=== PATIENT | female | born 1995 | race Caucasian/White ===

== ENCOUNTER 2016-12-16 07:09 | Emergency (ER) | payer OTHER ==
[~2016-12-16] VITALS: Ht 160 cm; Wt 81.5 kg
[2016-12-16 07:10] VITALS: BP 178/93; PULSE 95; RESP 18; TEMP 98.1; O2SAT 100
[2016-12-16] MEDS ORDERED: IBUP800T23 PO (07:45)
[2016-12-16] MEDS ORDERED: CYCL1TAB29 PO (07:45)
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
[2016-12-16] MEDS ORDERED: VENTAER INH (07:50)
[2016-12-16] MEDS ORDERED: SYMB80AE INH (07:50)
[2016-12-16] MEDS ORDERED: ORPHENADRINE INJ 60 MG/2 ML AMP IM ONE (08:00)
[2016-12-16] MEDS ORDERED: KETOROLAC TROMETHAMINE 60 MG/2 ML (IM) VIAL IM ONE (08:00)
== END 2016-12-16 08:51 | disposition home or self-care (01) ==
LOC: NEPB 07:09
DX: S16.1XXA Strain of muscle, fascia and tendon at neck level, initial encounter (principal); F17.210 Nicotine dependence, cigarettes, uncomplicated; J45.909 Unspecified asthma, uncomplicated; V43.52XA Car driver injured in collision with other type car in traffic accident, initial encounter; Y99.8 Other external cause status
CPT/HCPCS: 96372; 99283; J1885; J2360

== ENCOUNTER 2018-10-21 05:35 | Observation (INO) ==
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
[2018-10-21] MEDS: Mag Sulf 1 gm/100 ml Premix 100 ML IV.SIG SCH ×2 (05:55→07:13)
--- NOTE | 2018-10-21 06:15 | XR ---
EXAM DATE: 10/21/2018 5:54 AM EST AGE/SEX: 23 years / Female INDICATIONS: Shortness of breath, cough starting today CLINICAL DATA: This is the patient's initial encounter. Patient reports that signs and symptoms have been present for 1 day and indicates a pain score of 5/10. MEDICAL/SURGICAL HISTORY: Asthma. None. COMPARISON: . FINDINGS: A single AP view of the chest demonstrates the lungs to be symmetrically aerated without evidence of mass, infiltrate or effusion. The cardiomediastinal contours are unremarkable. Osseous structures a re intact. CONCLUSION: Negative examination. Electronically signed by: Frank Mejias MD 10/21/2018 6:13 AM EST
[2018-10-21 06:54] LABS: Baso # (Auto) 0.1 th/mm3 (0.0-0.2); Baso % (Auto) 0.3 % (0.0-2.0); Eos # (Auto) 0.1 th/mm3 (0.0-0.4); Eos % (Auto) 0.7 % (0.0-4.0); Hemoglobin 14.9 gm/dL (11.6-15.3); Lymph # (Auto) 2.4 th/mm3 (1.0-4.8); Lymph % (Auto) 12.9 % (9.0-44.0); Mean Corpuscular Volume 88.4 fL (80.0-100.0); Mono % (Auto) 5.6 % (0.0-8.0); Neut % (Auto) 80.5 % (16.0-70.0); Platelet Count 474 th/mm3 (150-450); Red Blood Count 4.97 mil/mm3 (4.00-5.30); Red Cell Distribution Width 13.3 % (11.6-17.2); White Blood Count 18.6 th/mm3 (4.0-11.0)
[2018-10-21 07:19] LABS: Carbon Dioxide 23.5 meq/L (21.0-32.0); Potassium 3.8 meq/L (3.5-5.1)
[2018-10-21] MEDS ORDERED: Sod Chloride 0.9% Inj 1,000 ML IV.SIG SCH ×2 (08:15→10:00)
--- NOTE | 2018-10-21 08:15 | P.HPFP ---
History of Present Illness Primary Care Physician: UNKNOWN <DiannedagoVidhya R - 10/21/18 20:28> UNKNOWN <Israel Villarreal B - 10/21/18 08:15> History of Present Illness: 23 yo F with PMH of Asthma presented to the ED via EMS due to SOB. Patient states that she was in her normal state of health until the day prior to admission when she became SOB around 3 pm. At that time she went home from work and used her pro-air inhaler as well as an albuterol nebulizer treatment. Her shortness of breath improved and then she returned to work and at 7 PM became short of breath again. That time she went home and did multiple nebulizer treatments but continued to feel that she "cannot get air in and felt some chest tightness." She was up all night short of breath and around 4 AM and called EMS. She states she had a total of 4 breathing treatments at home, 3 in the ambulance as well as steroids in the ambulance, and 2 more breathing treatments since being in the emergency room. She states her shortness of breath has improved but she continues to wheeze. And fever, chills, sick contacts. She does states that she has had a cough/itchy throat for 1 day that has been productive of white/mucus-like sputum. Denies any streaks of blood in the sputum. She states that she has had several weeks of substernal "constricted feeling "as well as occasional sharp pain with certain movements. Denies any exertional chest pain. Patient states her last hospitalization due to asthma was at 7 years of age and that she has never been intubated. She does state that one month ago she ran out of her inhalers and thought she may have had a small asthma exacerbation at that time but did not go to the hospital. Of note, patient states that she does have a history of irregular periods and has not had one in several months. She is sexually active with her fianc and is not on any form of control. PMH: Asthma, scoliosis, seasonal allergies Past surgical Hx:none Fam Hx: DM in parents, HTN mom Social Hx: Lives with jena and his brother, occasional tobacco use but none recently, Etoh several drinks per week with no history of withdrawal, no drugs. Has a desk job. No medical allergies <Israel Villarreal B - 10/21/18 09:50> - Diagnosis (1) Wheezing (2) Hypoxia (3) SIRS (systemic inflammatory response syndrome) (4) Chest pain (5) Abnormal menstrual periods (6) Nutrition, metabolism, and development symptoms <Vidhya Ngo [facility] 10/21/18 20:28> (1) Wheezing (2) Hypoxia (3) SIRS (systemic inflammatory response syndrome) (4) Chest pain (5) Abnormal menstrual periods (6) Nutrition, metabolism, and development symptoms <Israel Villarreal [facility] 10/21/18 11:31> Review of Systems Constitutional: Denies chills, Denies fever(s), Denies headache(s) <[facility] 10/21/18 08:15> Eyes: Denies blurry vision, Denies change in vision <[facility] 08:15> Ears, Nose, Mouth, and Throat: Reports sore throat [facility]> Cardiovascular: Reports shortness of breath with activity, Denies chest pain with activity <[facility] 10/21/18 08:15> Respiratory: Reports cough, Denies coughing up blood <[facility] 10/21 08:15> Gastrointestinal: Denies abdominal pain, Denies nausea, Denies vomiting < [facility] 08:15> Genitourinary: Reports abnormal periods, Denies blood in urine, Denies urinary urgency <[facility] 10/21/18 09:50> Musculoskeletal: Denies body aches, Denies radiating pain into limb <[facility] 10/21/18 09:50> Neurologic: Denies headache(s), Denies localized weakness <[facility] 10/21/18 09:50> PMFSH - History History Provided By: Patient <Israel Villarreal [facility] 10/21/18 08:15> - Medical History Medical History: Medical History (Last Reviewed 10/21/18 @ 08:12 by Israel Villarreal MD, R2) Asthma <JeniVidhay R 10/21/18 12:15> Medical History (Last Reviewed 10/21/18 @ 08:12 by Israel Villarreal MD, R2) Asthma <[facility] 10/21/18 08:15> - Tobacco History Second Hand Smoke Exposure: No <Israel Villarreal - 10/21/18 08:15> Smoking Status: Never smoker <Israel Villarreal - 10/21/18 08:15> Tobacco Type: Cigarettes <Israel Villarreal - 10/21/18 08:15> - Alcohol History How Often Do You Have a Drink Containing Alcohol: Monthly or less <Israel Villarreal 10/21/18 08:15> - Substance Use History Substance History: No History of Abuse <Israel Villarreal 10/21/18 08:15> - Travel History Recent Travel in the [facility] Within the Last 8 Weeks: No <Israel Villarreal 10/21 08:15> Recent Travel Out of the Country Within the Last 8 Weeks: No <Israel Villarreal 10/21/18 08:15> - Immunization History Tetanus Immunization: <5 Years <Israel Villarreal 10/21/18 08:15> Medications and Allergies Allergies Allergy/AdvReac Type Severity Reaction Status Date / Time cat dander Allergy Intermediate Wheezing Verified 10/21/18 05:43 <Vidhya Ngo - 10/21/18 20:28> Home Medications Medication Instructions Recorded Confirmed Type albuterol sulfate 2.5 mg INHALATION Q4H PRN 08/15/18 10/21/18 History <Vidhya Ngo - 10/21/18 20:28> Active Medications: Active Medications Acetaminophen (Tylenol) 650 mg PO Q4H PRN PRN Reason: Temp > 100.4 Al Hydroxide/Mg Hydroxide (Milk Of Bonifacio Liq) 30 ml PO Q12H PRN PRN Reason: Mild Constipation Albuterol (Albuterol Neb (Prn)) 2.5 mg NEB Q2HR NEB PRN PRN Reason: SHORTNESS OF BREATH Albuterol (Duoneb Neb (Ra)) 1 ampul NEB Q4HR NEB RA Last Admin: 10/21/18 11:53 Dose: 1 ampul Benzonatate (Tessalon Perles) 100 mg PO Q8H PRN PRN Reason: COUGH Naproxen (Anaprox Ds) 275 mg PO BID RA Last Admin: 10/21/18 09:35 Dose: Not Given Ondansetron HCl (Zofran Inj) 4 mg IV.PUSH Q6H PRN PRN Reason: NAUSEA OR VOMITING Prednisone (Deltasone) 40 mg PO DAILY [facility] Last Admin: 10/21/18 09:35 Dose: 40 mg Senna/Docusate Sodium (Martha-Colace) 1 tab PO BID [facility] Last Admin: 10/21/18 09:33 Dose: Not Given Sennosides (Senokot) 17.2 mg PO Q12H PRN PRN Reason: Moderate Constipation Sodium Chloride (Ns Flush) 2 ml IV.FLUSH BID [facility] Last Admin: 10/21/18 09:36 Dose: 2 ml Sodium Chloride (Ns Flush) 2 ml IV.FLUSH PRN PRN PRN Reason: FLUSH AFTER USING IV ACCESS <Vidhya Ngo R - 10/21/18 12:15> Exam Vital signs: Vital Signs 10/21/18 05:43 10/21/18 06:08 10/21/18 06:31 Temperature 98.0 F Pulse Rate 136 H 128 H 130 H Respiratory Rate 30 H 24 20 Blood Pressure 167/81 H 164/77 H Pulse Oximetry 94 L 97 10/21/18 06:47 10/21/18 08:38 10/21/18 08:58 Temperature Pulse Rate 125 H 110 H Respiratory Rate 20 22 Blood Pressure 133/72 Pulse Oximetry 96 93 L 96 10/21/18 10:33 10/21/18 11:28 10/21/18 11:54 Temperature Pulse Rate 115 H 114 H 114 H Respiratory Rate 20 40 H 22 Blood Pressure 125/69 137/68 Pulse Oximetry 96 Intake & Output 10/20/18 10/21/18 10/21/18 18:59 06:59 18:59 Intake Total 3200 / 3200 Balance 3200 / 3200 Weight 90.718 kg Intake: IV 3200 / 3200 Magnesium Sulfate 1 gm/D5W 100 200 / 200 ml Premix 100 ML @ 100 mls/hr IV.SIG Q1H [facility] Rx#:[id number] NS Inj 1,000 ML @ Wide Open IV. 3000 / 3000 SIG BOLUS ONE Rx#:[id number] <Vidhya Ngo R - 10/21/18 20:28> Vital Signs 10/21/18 05:43 10/21/18 06:08 10/21/18 06:31 Temperature 98.0 F Pulse Rate 136 H 128 H 130 H Respiratory Rate 30 H 24 20 Blood Pressure 167/81 H 164/77 H Pulse Oximetry 94 L 97 10/21/18 06:47 Temperature Pulse Rate 125 H Respiratory Rate 20 Blood Pressure Pulse Oximetry 96 Intake & Output 10/20/18 10/21/18 10/21/18 18:59 06:59 18:59 Intake Total 100 / 100 Balance 100 / 100 Weight 90.718 kg Intake: IV 100 / 100 Magnesium Sulfate 1 gm/D5W 100 100 / 100 ml Premix 100 ML @ 100 mls/hr IV.SIG Q1H [facility] Rx#:[id number] <Israel Villarreal Sindhu - 10/21/18 08:15> Narrative: GENERAL: Well developed, well nourished female sitting upright in bed in NAD. Breathing comfortably, able to speak in full sentences and answering questions appropriately SKIN: Warm and dry. HEAD: Atraumatic. Normocephalic. EYES: Pupils equal and round. No scleral icterus. No injection or drainage. ENT: No nasal bleeding or discharge. Mucous membranes pink and moist. Oropharynx is benign with no erythema or lesions NECK: Trachea midline. No JVD. No lymphadenopathy appreciated CARDIOVASCULAR: Regular rate and rhythm. Tachycardic to the 110's. Tender to palpation along the lower right sternal border RESPIRATORY: No accessory muscle use. Diffuse inspiratory and expiratory wheezes bilaterally. No crackles appreciated GASTROINTESTINAL: Abdomen soft, non-tender, nondistended. Hepatic and splenic margins not palpable. MUSCULOSKELETAL: Extremities without clubbing, cyanosis, or edema. No obvious deformities. NEUROLOGICAL: Awake and alert. No obvious cranial nerve deficits. Motor grossly within normal limits. Five out of 5 muscle strength in the arms and legs. Normal speech. PSYCHIATRIC: Appropriate mood and affect; insight and judgment normal. <Israel Villarreal B - 10/21/18 09:50> Results - Labs Result diagrams: 10/21/18 06:40 10/21/18 06:40 <Vidhya Ngo - 10/21/18 20:28> Abnormal lab results 10/21/18 10/21/18 10/21/18 Range/Units 06:40 06:40 06:40 WBC 18.6 H (4.0-11.0) th/mm3 Plt Count 474 H (150-450) th/mm3 Neut % (Auto) 80.5 H (16.0-70.0) % Neut # (Auto) 15.0 H (1.8-7.7) th/mm3 [place] # (Auto) 1.0 H (0.0-0.9) th/mm3 D-Dimer Quant (PE/DVT) (0.00-0.50) mg/L FEU BUN 6 L (7-18) mg/dL Random Glucose 121 H (74-106) mg/dL Lactic Acid (0.4-2.0) mmol/L C-Reactive Protein 2.00 H (0.00-0.30) mg/dL 10/21/18 10/21/18 Range/Units 08:35 09:00 WBC (4.0-11.0) th/mm3 Plt Count (150-450) th/mm3 Neut % (Auto) (16.0-70.0) % Neut # (Auto) (1.8-7.7) th/mm3 [place] # (Auto) (0.0-0.9) th/mm3 D-Dimer Quant (PE/DVT) 0.53 H (0.00-0.50) mg/L FEU BUN (7-18) mg/dL Random Glucose (74-106) mg/dL Lactic Acid 5.6 H* (0.4-2.0) mmol/L C-Reactive Protein (0.00-0.30) mg/dL Short CBC 10/21/18 Range/Units 06:40 WBC 18.6 H (4.0-11.0) th/mm3 Hgb 14.9 (11.6-15.3) gm/dL Hct 44.0 (35.0-46.0) % Plt Count 474 H (150-450) th/mm3 [facility] 10/21/18 06:40 Sodium 138 Potassium 3.8 Chloride 106 Carbon Dioxide 23.5 BUN 6 L Creatinine 0.79 Calcium 9.0 <Vidhya Ngo - 10/21/18 20:28> Abnormal lab results 10/21/18 10/21/18 Range/Units 06:40 06:40 WBC 18.6 H (4.0-11.0) th/mm3 Plt Count 474 H (150-450) th/mm3 Neut % (Auto) 80.5 H (16.0-70.0) % Neut # (Auto) 15.0 H (1.8-7.7) th/mm3 [place] # (Auto) 1.0 H (0.0-0.9) th/mm3 BUN 6 L (7-18) mg/dL Random Glucose 121 H (74-106) mg/dL Short CBC 10/21/18 Range/Units 06:40 WBC 18.6 H (4.0-11.0) th/mm3 Hgb 14.9 (11.6-15.3) gm/dL Hct 44.0 (35.0-46.0) % Plt Count 474 H (150-450) th/mm3 BMP 10/21/18 06:40 Sodium 138 Potassium 3.8 Chloride 106 Carbon Dioxide 23.5 BUN 6 L Creatinine 0.79 Calcium 9.0 <Israel Villarreal - 10/21/18 08:15> - Imaging Impressions Chest X-Ray 10/21/18 05:43 CONCLUSION: Negative examination. Chest CTA 10/21/18 09:34 CONCLUSION: 1. No pulmonary embolus identified. <Vidhya Ngo R - 10/21/18 20:28> Impressions Chest X-Ray 10/21/18 05:43 CONCLUSION: Negative examination. <Israel Villarrela - 10/21/18 08:15> Caprini VTE Risk Assessment Caprini VTE Risk Assessment: No/Low Risk (score <= 1) <Israel Villarreal - 09:50> Caprini Risk Assessment Model: Point Value = 1 Point Value = 2 Point Value = 3 Point Value = 5 Age 41-60 Minor surgery BMI > 25 kg/m2 Swollen legs Varicose veins or History of unexplained or recurrent spontaneous Oral contraceptives or hormone replacement Sepsis (< 1 month) Serious lung disease, including pneumonia (< 1 month) Abnormal pulmonary function Acute myocardial infarction Congestive heart failure (< 1 month) History of inflammatory bowel disease Medical patient at bed rest Age 61-74 Arthroscopic surgery Major open surgery (> 45 min) Laparoscopic surgery (> 45 min) Malignancy Confined to bed (> 72 hours) Immobilizing plaster cast Central venous access Age >= 75 History of VTE Family history of VTE Factor V Leiden Prothrombin [id number] Lupus anticoagulant Anticardiolipin antibodies Elevated serum homocysteine Heparin-induced thrombocytopenia Other congenital or acquired thrombophilia Stroke (< 1 month) Elective arthroplasty Hip, pelvis, or leg fracture Acute spinal cord injury (< 1 month) <Vidhya Ngo R - 10/21/18 20:28> Point Value = 1 Point Value = 2 Point Value = 3 Point Value = 5 Age 41-60 Minor surgery BMI > 25 kg/m2 Swollen legs Varicose veins or History of unexplained or recurrent spontaneous Oral contraceptives or hormone replacement Sepsis (< 1 month) Serious lung disease, including pneumonia (< 1 month) Abnormal pulmonary function Acute myocardial infarction Congestive heart failure (< 1 month) History of inflammatory bowel disease Medical patient at bed rest Age 61-74 Arthroscopic surgery Major open surgery (> 45 min) Laparoscopic surgery (> 45 min) Malignancy Confined to bed (> 72 hours) Immobilizing plaster cast Central venous access Age >= 75 History of VTE Family history of VTE Factor V Leiden Prothrombin [id number] Lupus anticoagulant Anticardiolipin antibodies Elevated serum homocysteine Heparin-induced thrombocytopenia Other congenital or acquired thrombophilia Stroke (< 1 month) Elective arthroplasty Hip, pelvis, or leg fracture Acute spinal cord injury (< 1 month) <Israel Villarreal B - 10/21/18 08:15> Prophylaxis Regimen: Total Risk Factor Score Risk Level Prophylaxis Regimen 0-1 Low Early ambulation 2 Moderate Order ONE of the following: *Sequential Compression Device (SCD) *Heparin 5000 units SQ BID 3-4 Higher Order ONE of the following medications: *Heparin 5000 units SQ TID *Enoxaparin/Lovenox 40 mg SQ daily (WT < 150 kg, CrCl > 30 mL/min) *Enoxaparin/Lovenox 30 mg SQ daily (WT < 150 kg, CrCl > 10-29 mL/min) *Enoxaparin/Lovenox 30 mg SQ BID (WT < 150 kg, CrCl > 30 mL/min) AND/OR *Sequential Compression Device (SCD) 5 or more Highest Order ONE of the following medications: *Heparin 5000 units SQ TID (Preferred with Epidurals) *Enoxaparin/Lovenox 40 mg SQ daily (WT < 150 kg, CrCl > 30 mL/min) *Enoxaparin/Lovenox 30 mg SQ daily (WT < 150 kg, CrCl > 10-29 mL/min) *Enoxaparin/Lovenox 30 mg SQ BID (WT < 150 kg, CrCl > 30 mL/min) AND *Sequential Compression Device (SCD) <Vidhya Ngo R - 10/21/18 20:28> Total Risk Factor Score Risk Level Prophylaxis Regimen 0-1 Low Early ambulation 2 Moderate Order ONE of the following: *Sequential Compression Device (SCD) *Heparin 5000 units SQ BID 3-4 Higher Order ONE of the following medications: *Heparin 5000 units SQ TID *Enoxaparin/Lovenox 40 mg SQ daily (WT < 150 kg, CrCl > 30 mL/min) *Enoxaparin/Lovenox 30 mg SQ daily (WT < 150 kg, CrCl > 10-29 mL/min) *Enoxaparin/Lovenox 30 mg SQ BID (WT < 150 kg, CrCl > 30 mL/min) AND/OR *Sequential Compression Device (SCD) 5 or more Highest Order ONE of the following medications: *Heparin 5000 units SQ TID (Preferred with Epidurals) *Enoxaparin/Lovenox 40 mg SQ daily (WT < 150 kg, CrCl > 30 mL/min) *Enoxaparin/Lovenox 30 mg SQ daily (WT < 150 kg, CrCl > 10-29 mL/min) *Enoxaparin/Lovenox 30 mg SQ BID (WT < 150 kg, CrCl > 30 mL/min) AND *Sequential Compression Device (SCD) <Israel Villarreal B - 10/21/18 08:15> Assessment and Plan - Assessment (1) Wheezing Code(s): R06.2 - Wheezing Status: Acute (2) Hypoxia Code(s): R09.02 - Hypoxemia Status: Acute (3) SIRS (systemic inflammatory response syndrome) Code(s): R65.10 - Systemic inflammatory response syndrome (SIRS) of non- infectious origin without acute organ dysfunction Status: Acute (4) Chest pain Code(s): R07.9 - Chest pain, unspecified Status: Acute (5) Abnormal menstrual periods Code(s): N92.6 - Irregular menstruation, unspecified Status: Acute (6) Nutrition, metabolism, and development symptoms Code(s): R63.8 - Other symptoms and signs concerning food and fluid intake Status: Acute <Vidhya Ngo R - 10/21/18 20:28> (1) Wheezing Code(s): R06.2 - Wheezing Status: Acute Plan: 1 day history of wheezing/shortness of breath with a known history of asthma Takes Symbicort at home as well as occasional pro-air inhaler/albuterol nebulizer treatments Received a total of 7-10 breathing treatments over the course of the last 24 hours Received Solu-Medrol 125 mg in the ambulance Continues to have respiratory and expiratory wheezing on exam Received 2 g magnesium IV in the ED Will continue scheduled duo nebs every 4 hours, albuterol nebs every 2 hours as needed Prednisone 40 mg p.o. daily (2) Hypoxia Code(s): R09.02 - Hypoxemia Status: Acute Plan: Patient was hypoxic with oxygen as low as 89% on room air Likely secondary to her asthma exacerbation, however PE is on the differential Wells score of 1.5 D-dimer ordered on admission O2 nasal cannula as needed (3) SIRS (systemic inflammatory response syndrome) Code(s): R65.10 - Systemic inflammatory response syndrome (SIRS) of non- infectious origin without acute organ dysfunction Status: Acute Plan: Patient meets sirs criteria on admission with a WBC of 18.6, tachycardia up to 130 Chest x-ray on admission was negative, UA pending No known source at this time Received 1 L normal saline bolus in the ED Patient had received 125 mg Solu-Medrol IV prior to the CBC being drawn, is also had numerous albuterol breathing treatments could contribute to tachycardia Ordering lactic acid, CRP Will continue to monitor and consider drawing blood cultures/initiating antibiotic treatment pending further workup (4) Chest pain Code(s): R07.9 - Chest pain, unspecified Status: Acute Plan: Patient with several week history of substernal chest pain that is occasionally sharp with certain movements No exertional chest pain or pain at rest Reproducible on physical exam, suspect costochondritis EKG on admission showed sinus tachycardia Naproxen 275 mg p.o. twice daily (5) Abnormal menstrual periods Code(s): N92.6 - Irregular menstruation, unspecified Status: Acute Plan: Patient with a known history of abnormal menstrual periods States she has not had a period in 3 months test ordered on admission, sexually active with her fianc and currently on any form of contraception Will need to follow-up with PCP as an outpatient (6) Nutrition, metabolism, and development symptoms Code(s): R63.8 - Other symptoms and signs concerning food and fluid intake Status: Acute Plan: Regular diet No IV fluids at this time, received 1 L bolus of normal saline in the ED SCDs for DVT prophylaxis Zofran as needed for nausea <Israel Villarreal Sindhu - 10/21/18 11:31> - Assessment and Plan 23-year-old female with a known history of asthma presented to the ED via EMS with a 1 day history of shortness of breath. Significant wheezing on exam and hypoxia with O2 sat of 89 appreciated on admission. Chest x-ray negative on admission, EKG with sinus tachycardia. Patient meets sirs criteria on admission due to leukocytosis and tachycardia. Admitting to observation for further workup and management of her wheezing. Disposition: Likely discharge home tomorrow <Israel Villarreal - 10/21/18 09:50> - Attending Attestation Patient discussed with the resident team and agree with the assessment and plan as written. I personally saw the patient and did my exam at 12:00pm. Patient reports feeling much better since she first came to the ED -- she states her chest feels less tight, she is moving air easier, less SOB. She reports somewhat of some SOB after walking to and from the bathroom but no longer has any SOB at rest. Vital Signs Temp Pulse Resp BP Pulse Ox 10/21/18 11:54 114 H 22 10/21/18 11:28 114 H 40 H 137/68 10/21/18 10:33 115 H 20 125/69 96 10/21/18 08:58 96 10/21/18 08:38 110 H 22 133/72 93 L 10/21/18 06:47 125 H 20 96 10/21/18 06:31 130 H 20 164/77 H 97 10/21/18 06:08 128 H 24 10/21/18 05:43 98.0 F 136 H 30 H 167/81 H 94 L Intake and Output 10/20/18 10/21/18 10/21/18 22:59 06:59 14:59 Intake Total 3200 / 3200 Balance 3200 / 3200 Intake: IV 3200 / 3200 Magnesium Sulfate 1 gm/D5W 100 200 / 200 ml Premix 100 ML @ 100 mls/hr IV.SIG Q1H [facility] Rx#:[id number] NS Inj 1,000 ML @ Wide Open IV. 3000 / 3000 SIG BOLUS ONE Rx#:[id number] Other: Weight 90.718 kg GENERAL: GENERAL: SKIN: Warm and dry. HEAD: Atraumatic. Normocephalic. EYES: Pupils equal and round. No scleral icterus. No injection or drainage. ENT: No nasal bleeding or discharge. Mucous membranes pink and moist. NECK: Trachea midline. No JVD. CARDIOVASCULAR: Regular rate and rhythm. RESPIRATORY: No accessory muscle use. bilateral inspiratory and expiratory wheezing, no crackles or rales, Moving air well GASTROINTESTINAL: Abdomen soft, non-tender, nondistended. Hepatic and splenic margins not palpable. MUSCULOSKELETAL: Extremities without clubbing, cyanosis, or edema. No obvious deformities. NEUROLOGICAL: Awake and alert. No obvious cranial nerve deficits. Motor grossly within normal limits. Five out of 5 muscle strength in the arms and legs. Normal speech. PSYCHIATRIC: Appropriate mood and affect; insight and judgment normal. AP: 1. Asthma exacerbation -- patient already improving. Does meet SIRS criteria on admission but the elevated HR likely due to several albuterol treatments. Elevated WBC might be possible with steroids -- but will monitor for sign of bacterial infection. Clinically this patient is not septic, she is already improved and shows no sign of clinical infection. Continue current plan <Vidhya Ngo R - 10/21/18 12:15>
[2018-10-21] MEDS ORDERED: Acetaminophen 325 MG Tablet PO PRN (08:34)
[2018-10-21] MEDS: Senna/Docusate Sodium 8.6/50 MG Tablet PO SCH ×2 (09:33→20:25)
[2018-10-21] MEDS: predniSONE 20 MG Tablet PO SCH (09:35)
[2018-10-21] MEDS ORDERED: Sod Chloride 0.9% Inj 1,000 ML IV.SIG ONE (10:00)
[2018-10-21] MEDS ORDERED: Benzonatate 100 MG Capsule PO PRN (10:20)
--- NOTE | 2018-10-21 10:28 | CT ---
EXAM DATE: 10/21/2018 10:21 AM EST AGE/SEX: 23 years / Female INDICATIONS: Short of breath with chest pain for 10 hours. CLINICAL DATA: This is the patient's initial encounter. Patient reports that signs and symptoms have been present for 1 day and indicates a pain score of 9/10. MEDICAL/SURGICAL HISTORY: Asthma. None. RADIATION DOSE: 16.85 CTDI (mGy) COMPARISON: No prior exams available for comparison. TECHNIQUE: Volumetric scanning was performed using a multi-row detector CT scanner during bolus infu jackelin of 75 ml Omnipaque 350 (iohexol) nonionic water-soluble contrast as a single exam dose. The dione a was post processed with a variety of visualization algorithms including full volume maximum intensi ty projection and sliding thin slab reformation. Using automated exposure control and adjustment of the mA and/or kV according to patient size, radiation dose was kept as low as reasonably achievable t o obtain optimal diagnostic quality images. DICOM format image data is available electronically for review and comparison. FINDINGS: The examination is of adequate diagnostic quality. No pulmonary embolus is identified. The thoracic a chelsea is intact. The heart is normal in size. There is no significant hilar or mediastinal adenopathy. No pericardial effusion is evident. The visualized pulmonary parenchyma is clear. The osseous structures are intact. CONCLUSION: 1. No pulmonary embolus identified. Electronically signed by: Marbin Collier MD 10/21/2018 10:27 AM EST
[2018-10-21 12:13] LABS: Albumin 3.5 g/dL (3.4-5.0)
[2018-10-21 12:15] LABS: Total Protein 7.4 g/dL (6.4-8.2)
[2018-10-22 06:02] LABS: Baso % (Auto) 0.2 % (0.0-2.0); Eos # (Auto) 0.1 th/mm3 (0.0-0.4); Eos % (Auto) 0.4 % (0.0-4.0); Hematocrit 38.4 % (35.0-46.0); Lymph # (Auto) 3.5 th/mm3 (1.0-4.8); Lymph % (Auto) 16.7 % (9.0-44.0); Mean Corpuscular HGB Conc 33.8 % (32.0-36.0); Mean Corpuscular Hemoglobin 30.5 pg (27.0-34.0); Mean Corpuscular Volume 90.4 fL (80.0-100.0); Mean Platelet Volume 7.5 fL (7.0-11.0); Mono # (Auto) 1.8 th/mm3 (0.0-0.9); Mono % (Auto) 8.4 % (0.0-8.0); Neut # (Auto) 15.7 th/mm3 (1.8-7.7); Neut % (Auto) 74.3 % (16.0-70.0); Platelet Count 422 th/mm3 (150-450); Red Blood Count 4.25 mil/mm3 (4.00-5.30); Red Cell Distribution Width 13.5 % (11.6-17.2); White Blood Count 21.1 th/mm3 (4.0-11.0)
[2018-10-22 06:25] LABS: Anion Gap 5 meq/L (5-15); Blood Urea Nitrogen 7 mg/dL (7-18); Calcium 8.5 mg/dL (8.5-10.1); Carbon Dioxide 25.7 meq/L (21.0-32.0); Chloride 109 meq/L (98-107); Glomerular Filtration Rate Greater Than 89 mL/min (>89); Glucose,Random 121 mg/dL (74-106); Sodium 140 meq/L (136-145)
[2018-10-22] MEDS: predniSONE 20 MG Tablet PO SCH (08:21)
[2018-10-22] MEDS: Senna/Docusate Sodium 8.6/50 MG Tablet PO SCH (08:27)
--- NOTE | 2018-10-22 10:28 | P.PNFP ---
Subjective Interval history: No acute events overnight. Patient's vital signs remained stable and her tachycardia improved to a heart rate in the 90s. Patient was on room air overnight and tolerated walking around her room with no significant shortness of breath. She continues to have some mild chest pain when coughing but states that has improved. Patient feels comfortable going home today. <Israel Villarreal B - 10/22/18 14:00> Results - Labs Result diagrams: 10/22/18 05:37 10/22/18 05:37 <Vidhya Ngo R - 10/23/18 09:12> Abnormal lab results 10/21/18 10/21/18 10/21/18 Range/Units 11:27 12:08 15:18 WBC (4.0-11.0) th/mm3 Neut % (Auto) (16.0-70.0) % [place] % (Auto) (0.0-8.0) % Neut # (Auto) (1.8-7.7) th/mm3 [place] # (Auto) (0.0-0.9) th/mm3 Chloride (98-107) meq/L Random Glucose (74-106) mg/dL Lactic Acid 4.6 H* 4.6 H* (0.4-2.0) mmol/L AST 12 L (15-37) U/L 10/22/18 10/22/18 Range/Units 05:37 05:37 WBC 21.1 H (4.0-11.0) th/mm3 Neut % (Auto) 74.3 H (16.0-70.0) % [place] % (Auto) 8.4 H (0.0-8.0) % Neut # (Auto) 15.7 H (1.8-7.7) th/mm3 [place] # (Auto) 1.8 H (0.0-0.9) th/mm3 Chloride 109 H (98-107) meq/L Random Glucose 121 H (74-106) mg/dL Lactic Acid (0.4-2.0) mmol/L AST (15-37) U/L Short CBC 10/22/18 Range/Units 05:37 WBC 21.1 H (4.0-11.0) th/mm3 Hgb 13.0 (11.6-15.3) gm/dL Hct 38.4 (35.0-46.0) % Plt Count 422 (150-450) th/mm3 BMP 10/22/18 05:37 Sodium 140 Potassium 4.0 Chloride 109 H Carbon Dioxide 25.7 BUN 7 Creatinine 0.70 Calcium 8.5 Liver Function 10/21/18 Range/Units 11:27 Total Bilirubin 0.5 (0.2-1.0) mg/dL Direct Bilirubin 0.1 (0.0-0.2) mg/dL AST 12 L (15-37) U/L ALT 20 (10-53) U/L Alkaline Phosphatase 68 (45-117) U/L Albumin 3.5 (3.4-5.0) g/dL <Israel Villarreal - 10/22/18 10:28> - Imaging Impressions Chest CTA 10/21/18 09:34 CONCLUSION: 1. No pulmonary embolus identified. <Israel Villarreal - 10/22/18 10:28> Physical Exam Vital signs: Vital Signs 10/22/18 12:00 10/22/18 12:40 Temperature 97.9 F Pulse Rate 99 H 99 H Respiratory Rate 18 16 Blood Pressure 128/84 Pulse Oximetry 98 <Vidhya Ngo - 10/23/18 09:12> Vital Signs 10/21/18 10:33 10/21/18 11:28 10/21/18 11:54 Temperature Pulse Rate 115 H 114 H 114 H Respiratory Rate 20 40 H 22 Blood Pressure 125/69 137/68 Pulse Oximetry 96 10/21/18 15:31 10/21/18 16:44 10/21/18 20:00 Temperature 98.2 F Pulse Rate 114 H 114 H 111 H Respiratory Rate 20 24 20 Blood Pressure 132/70 145/75 H Pulse Oximetry 96 95 10/21/18 20:17 10/21/18 23:46 10/22/18 00:00 Temperature 98.4 F Pulse Rate 111 H 101 H 101 H Respiratory Rate 16 16 20 Blood Pressure 131/66 Pulse Oximetry 93 L 93 L 10/22/18 03:32 10/22/18 04:15 10/22/18 08:00 Temperature 97.7 F 97.9 F Pulse Rate 101 H 102 H 88 Respiratory Rate 14 20 18 Blood Pressure 125/73 132/73 Pulse Oximetry 96 95 10/22/18 09:01 Temperature Pulse Rate 97 H Respiratory Rate 16 Blood Pressure Pulse Oximetry 96 Intake & Output 10/21/18 10/22/18 10/22/18 18:59 06:59 18:59 Intake Total 3200 / 3200 420 / 420 Balance 3200 / 3200 420 / 420 Weight 100.6 kg Intake: IV 3200 / 3200 Magnesium Sulfate 1 gm/D5W 100 200 / 200 ml Premix 100 ML @ 100 mls/hr IV.SIG Q1H YULISA Rx#:[id number] NS Inj 1,000 ML @ Wide Open IV. 3000 / 3000 SIG BOLUS ONE Rx#:[id number] Oral 420 / 420 Other: # Voids 3 Date of Last Bowel Movement 10/20/18 10/20/18 Weight On Admission 90.71 kg <Israel Villarreal - 10/22/18 10:28> Narrative: GENERAL: Well developed, well nourished female sitting upright in bed in NAD. Breathing comfortably, able to speak in full sentences and answering questions appropriately SKIN: Warm and dry. HEAD: Atraumatic. Normocephalic. EYES: Pupils equal and round. No scleral icterus. No injection or drainage. ENT: No nasal bleeding or discharge. Mucous membranes pink and moist. Oropharynx is benign with no erythema or lesions NECK: Trachea midline. No JVD. No lymphadenopathy appreciated CARDIOVASCULAR: Regular rate and rhythm. Tachycardic to the 90's. RESPIRATORY: No accessory muscle use. Occasional expiratory wheeze in the right lung base significantly improved from prior exam. No crackles appreciated GASTROINTESTINAL: Abdomen soft, non-tender, nondistended. Hepatic and splenic margins not palpable. MUSCULOSKELETAL: Extremities without clubbing, cyanosis, or edema. No obvious deformities. NEUROLOGICAL: Awake and alert. No obvious cranial nerve deficits. Motor grossly within normal limits. Normal speech. PSYCHIATRIC: Appropriate mood and affect; insight and judgment normal. <Israel Villarreal - 10/22/18 14:00> Assessment and Plan - Assessment (1) Wheezing Code(s): R06.2 - Wheezing Status: Acute (2) Hypoxia Code(s): R09.02 - Hypoxemia Status: Acute (3) SIRS (systemic inflammatory response syndrome) Code(s): R65.10 - Systemic inflammatory response syndrome (SIRS) of non- infectious origin without acute organ dysfunction Status: Acute (4) Chest pain Code(s): R07.9 - Chest pain, unspecified Status: Acute (5) Abnormal menstrual periods Code(s): N92.6 - Irregular menstruation, unspecified Status: Acute (6) Nutrition, metabolism, and development symptoms Code(s): R63.8 - Other symptoms and signs concerning food and fluid intake Status: Acute <Vidhya Ngo - 10/23/18 09:12> (1) Wheezing Code(s): R06.2 - Wheezing Status: Acute Plan: 1 day history of wheezing/shortness of breath with a known history of asthma on admission Takes Symbicort at home as well as occasional pro-air inhaler/albuterol nebulizer treatments Received Solu-Medrol 125 mg in the ambulance Received 2 g magnesium IV in the ED Shortness of breath/wheezing significantly improved overnight on scheduled duo nebs and albuterol nebulizers as needed Patient satting well on room air We will discharge patient home to complete 5 days of steroids, albuterol nebulizer treatments as needed at home (2) Hypoxia Code(s): R09.02 - Hypoxemia Status: Acute Plan: Patient was hypoxic with oxygen as low as 89% on room air Likely secondary to her asthma exacerbation, however PE is on the differential D-dimer was mildly elevated at 0.52 CTA ordered from the emergency room physician, CTA was negative Currently resolved and satting well on room air (3) SIRS (systemic inflammatory response syndrome) Code(s): R65.10 - Systemic inflammatory response syndrome (SIRS) of non- infectious origin without acute organ dysfunction Status: Acute Plan: Patient met sirs criteria on admission with a WBC of 18.6, tachycardia up to 130 Chest x-ray on admission was negative, UA pending Patient had received 125 mg Solu-Medrol IV prior to the CBC being drawn, had also had numerous albuterol breathing treatments could contribute to tachycardia Lactic acid was ordered and found to be 5.6 with a CRP of 2.0, lactic acid was trended and decreased to 4.6 without any antibiotic intervention Blood cultures were ordered and had no growth after 24 hours Tachycardia improved with a heart rate in the 90s on day 2 of hospitalization At this time there are no signs of infection clinically and the lactic acidosis believed to be secondary to hypoxia, significant beta agonist administration Suspect the initial surge criteria to be secondary to steroids and multiple beta agonists Will continue to follow blood cultures after patient has been discharged home (4) Chest pain Code(s): R07.9 - Chest pain, unspecified Status: Acute Plan: Patient with several week history of substernal chest pain that is occasionally sharp with certain movements No exertional chest pain or pain at rest Reproducible on physical exam, suspect costochondritis EKG on admission showed sinus tachycardia Naproxen 275 mg p.o. twice daily Symptoms improved on p.o. naproxen We will discharge home and recommend patient take [id number] anti- inflammatories for several days, discharging on Tessalon Perles to treat her cough (5) Abnormal menstrual periods Code(s): N92.6 - Irregular menstruation, unspecified Status: Acute Plan: Patient with a known history of abnormal menstrual periods States she has not had a period in 3 months test ordered on admission was negative, sexually active with her fianc and currently on any form of contraception Will need to follow-up with PCP as an outpatient (6) Nutrition, metabolism, and development symptoms Code(s): R63.8 - Other symptoms and signs concerning food and fluid intake Status: Acute Plan: Regular diet No IV fluids at this time SCDs for DVT prophylaxis Zofran as needed for nausea <Israel Villarreal - 10/22/18 13:48> - Assessment and Plan 23-year-old female with a known history of asthma presented to the ED via EMS with a 1 day history of shortness of breath. Significant wheezing on exam and hypoxia with O2 sat of 89 appreciated on admission. Chest x-ray negative on admission, EKG with sinus tachycardia. Patient meets sirs criteria on admission due to leukocytosis and tachycardia. CTA was ordered and was negative for pulmonary embolism. Lactic acidosis was drawn and was elevated at 5.6, was repeated and down trended to 4.6 without any antibiotic intervention. Surgeon criteria and lactic acidosis suspected to be secondary to steroid administration, multiple beta agonist administration, and mild hypoxia on admission. Patient was admitted overnight and treated with p.o. steroids, scheduled breathing treatments and improved significantly by hospital day 2. Patient was satting well on room air and felt safe being discharged home <Israel Villarreal - 10/22/18 14:00> - Attending Attestation The exam, history, and the medical decision-making described in the above note were completed with the assistance of the resident physician. I reviewed and agree with the findings presented. I attest that I had a [id number] encounter with the patient on the same day, and personally performed and documented my assessment and findings in the medical record. <Vidhya Ngo - 10/23/18 09:12>
[2018-10-22] MEDS ORDERED: Influenza (Quadrivalent) Vaccine 0.5 ML Syringe IM ONE (12:00)
--- NOTE | 2018-10-22 12:42 | ECG ---
Date Performed: 10/21/2018 Time Performed: 07:53:48 PTAGE: 23 years EKG: SINUS TACHYCARDIA NONSPECIFIC T-WAVE ABNORMALITY ABNORMAL ECG NO PREVIOUS TRACING DOCTOR: Shahid Gilliland Interpretating Date/Time 10/22/2018 12:40:27
--- NOTE | 2018-10-25 11:06 | P.PNADD ---
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 Called Ms. Sierra to update her and inquire about her shortness of breath post discharge. Patient did not answer the phone and a voicemail was left. Encouraged patient to follow up at [facility].
== END 2018-10-22 15:51 | disposition home or self-care (01) ==
LOC: NEPC 05:35 → NEDA 05:35 → N06 17:10
PROVIDERS: ADMIT Family Medicine; ATTEND Family Medicine
DX: R09.02 Hypoxemia; N92.6 Irregular menstruation, unspecified; R63.8 Other symptoms and signs concerning food and fluid intake; Z68.39 Body mass index [BMI] 39.0-39.9, adult; D72.829 Elevated white blood cell count, unspecified; F17.210 Nicotine dependence, cigarettes, uncomplicated; Z23 Encounter for immunization; M41.9 Scoliosis, unspecified; Z83.3 Family history of diabetes mellitus; J45.901 Unspecified asthma with (acute) exacerbation; E66.3 Overweight; R94.31 Abnormal electrocardiogram [ECG] [EKG]; R65.10 Systemic inflammatory response syndrome (SIRS) of non-infectious origin without acute organ dysfunction; I10 Essential (primary) hypertension; E87.2 Acidosis